=== PATIENT | female | born 1955 | race Caucasian/White ===

== ENCOUNTER → 2019-02-15 | Outpatient (CLI) | payer OTHER ==
[~2019-02-15] MED LIST: ALBU90OI INH; AMOX500 PO; BENZ100A PO; DIPH50; HYDACE5 PO; NAPR220; PENVK500 PO; PRED20 PO; RXPENVK250 PO
[2019-02-20 14:07] LABS: HPV 16 Negative (Negative); HPV 18 Negative (Negative); HPV OTHER HR TYPES Positive (Negative)
== END | disposition home or self-care (01) ==
LOC: LAB SHORT 17:35 → LAB 17:35
PROVIDERS: Family Medicine
DX: Z12.4 Encounter for screening for malignant neoplasm of cervix (principal)
CPT/HCPCS: 87624; G0145

== ENCOUNTER 2020-04-24 08:57 | Day surgery (SDC) | payer OTHER ==
[~2020-04-24 08:57] MED LIST changes: +ATOR40TA; +Aspir 8181 MG; +GABA300; +Prinivil10 MG; +SERT100
--- NOTE | 2020-04-24 11:27 | NUR ---
PT BROUGHT BACK TO RECOVERY ROOM ON GURNEY, TR BAND ON RIGHT WRIST WITH AIR IN, RIGHT VENOUS BRACHIAL SITE SOFT NON TENDER WITH NO BLEEDING OOZING, OR PAIN. PT C/O NAUSEA, MEDICATED WITH ZOFRAN [address] FIELDS. WILL CONTINUE TO MONITOR. CALL LIGHT IN REACH, VSS.
[2020-04-24] MEDS ORDERED: Vitamin D2000 UNIT PO (11:40)
[2020-04-24] MEDS ORDERED: ALBU8HFA2 INH (11:40)
[2020-04-24] MEDS ORDERED: FISH OIL 1,2001 EAC7 (11:40)
[2020-04-24] MEDS ORDERED: TRAZ50 PO (11:41)
[2020-04-24] MEDS ORDERED: MELA3 (11:41)
--- NOTE | 2020-04-24 13:14 | NUR ---
10 CC OF AIR REMOVED OUT OF NOW DEFLATED RIGHT TR BAND OVER 10 MIN. RIGHT RADIAL SITE SOFT NON-TENDER WITH NO HEMATOMA AND NO PULSATILE BLEEDING. RIGHT AC VENOUS SITE SOFT NON-TENDER WITH NO HEMATOMA, NO BLEEDING AND INTACT DRESSING. DISCHARGE INSTRUCTIONS REVIEWED AND ALL QUESTIONS ANSWERED.
--- NOTE | 2020-04-24 13:25 | NUR ---
NO CHANGES TO EITHER DEFLATED RIGHT TR BAND SITE OR RIGHT AC VENOUS SITE.
--- NOTE | 2020-04-24 13:36 | NUR ---
NO CHANGES TO RIGHT DEFLATED TR BAND SITE OR RIGHT AC VENOUS SITE.
--- NOTE | 2020-04-24 14:11 | NUR ---
DEFLATED RIGHT TR BAND REMOVED AND POLYMEM PLACED OVER RIGHT RADIAL SITE WITH WRIST BOARD IN PLACE. NO CHANGES TO EITHER RIGHT RADIAL SITE OR RIGHT AC VENOUS SITE. 22 G IV REMOVED FROM LEFT AC WITH INTACT CANNULA. PT ESCORTED OUT VIA WHEELCHAIR ESCORT.
== END 2020-04-24 14:20 | disposition home or self-care (01) ==
LOC: MHTC 08:57
PROC: B206YZZ Plain Radiography of Right and Left Heart using Other Contrast (ICD-10-PCS; principal; 2020-04-24)
PROC: 4A023N8 Measurement of Cardiac Sampling and Pressure, Bilateral, Percutaneous Approach (ICD-10-PCS; principal; 2020-04-24)
PROC: B201YZZ Plain Radiography of Multiple Coronary Arteries using Other Contrast (ICD-10-PCS; principal; 2020-04-24)
DX: I35.0 Nonrheumatic aortic (valve) stenosis (principal); R07.89 Other chest pain; I25.10 Atherosclerotic heart disease of native coronary artery without angina pectoris; E78.5 Hyperlipidemia, unspecified; M79.7 Fibromyalgia; I11.0 Hypertensive heart disease with heart failure; I50.9 Heart failure, unspecified; Z88.5 Allergy status to narcotic agent; Z87.891 Personal history of nicotine dependence; Z79.899 Other long term (current) drug therapy; Z79.82 Long term (current) use of aspirin
CPT/HCPCS: 76937; 85347; 93460; 99152; 99153; C1769; C1887; C1894; J1644; J2250; J2405; J3010; J7040; J7050; Q9967

== ENCOUNTER 2021-10-22 11:44 | Day surgery (SDC) | payer OTHER ==
[~2021-10-22 11:44] MED LIST changes: +ALBU8HFA2 INH; +FISH OIL 1,2001 EAC7; +MELA3; +TRAZ50 PO; +Vitamin D2000 UNIT PO
== END 2021-10-22 12:15 | disposition home or self-care (01) ==
LOC: ORSCSDS 11:44
DX: Z12.11 Encounter for screening for malignant neoplasm of colon (principal); Z53.9 Procedure and treatment not carried out, unspecified reason
CPT/HCPCS: J7120

== ENCOUNTER → 2021-11-05 | Outpatient (CLI) | payer OTHER | END | disposition home or self-care (01) | LOC: LAB SHORT 08:04 → PLD 08:04 | DX: N72 Inflammatory disease of cervix uteri (principal); N88.8 Other specified noninflammatory disorders of cervix uteri | CPT/HCPCS: 88305 ==

== ENCOUNTER 2022-11-27 12:38 | Inpatient (IN) | payer OTHER ==
[~2022-11-27] VITALS: Ht 152.4 cm; Wt 58.0 kg
[~2022-11-27 12:38] MED LIST changes: +ACET325 PO; -ATOR40TA; +ATOR40TA PO; -Aspir 8181 MG; +Aspir 8181 MG PO; -FISH OIL 1,2001 EAC7; +FISH OIL 1,2001 EAC7 PO; -MELA3; +MELA3 PO; -Prinivil10 MG; +Prinivil10 MG PO; -SERT100; +SERT100 PO
[2022-11-27 13:45] LABS: BASOPHILS ABSOLUTE AUTO 0.03 K/mm3 (0.00-0.23); BASOPHILS PERCENT AUTO 0 % (0-2); EOSINOPHILS PERCENT AUTO 1 % (0-6); Hematocrit 41.5 % (33.0-51.0); Hemoglobin 13.5 g/dL (11.5-16.0); IMMATURE GRAN ABSOLUTE AUTO 0.03 K/mm3 (0.00-0.10); IMMATURE GRAN PERCENT AUTO 0 % (0-1); LYMPHOCYTES ABSOLUTE AUTO 0.83 K/mm3 (0.84-5.20); LYMPHOCYTES PERCENT AUTO 8 % (21-46); MONOCYTES ABSOLUTE AUTO 0.48 K/mm3 (0.16-1.47); MONOCYTES PERCENT AUTO 5 % (4-13); Mean Corpuscular HGB 30.3 pg (26.0-34.0); Mean Corpuscular HGB Conc 32.5 g/dL (31.5-36.5); Mean Corpuscular Volume 93 fL (80-100); Mean Platelet Volume 10.6 fL (9.1-12.4); NEUTROPHILS ABSOLUTE AUTO 8.52 K/mm3 (1.96-9.15); NEUTROPHILS PERCENT AUTO 85 % (41-73); Platelet Count 185 K/mm3 (150-400); RDW Coefficient Variation 13.6 % (11.7-14.2); Red Blood Cell Count 4.45 M/mm3 (3.80-5.20); White Blood Cell Count 9.99 K/mm3 (4.00-11.30)
[2022-11-27 14:00] LABS: Albumin/Globulin Ratio 0.9 (0.8-1.8); Bilirubin, Total 0.4 mg/dL (0.1-1.0); Bun/Creatinine Ratio 21.3 (12.0-20.0); Calcium, Blood 9.1 mg/dL (8.5-10.1); Creatinine, Blood 0.8 mg/dL (0.40-1.00); Globulin, Blood 4.4 g/dL (2.2-4.0); Potassium, Blood 4.1 mmol/L (3.5-5.5); Total Protein, Blood 8.4 g/dL (6.4-8.2)
[2022-11-27] MEDS ORDERED: ELIQUIS2.5 MG (16:05)
[2022-11-27 19:49] VITALS: BP 155/71
[2022-11-27] MEDS ORDERED: BUPR150ER PO (19:52)
[2022-11-27 22:52] LABS: International Normalized Ratio 1.06; Prothrombin Time Results 11.1 Sec (9.7-11.5)
[2022-11-28] VITALS (7 sets, daily range): BP systolic 83–131; BP diastolic 54–60
[2022-11-28 05:11] LABS: BASOPHILS ABSOLUTE AUTO 0.02 K/mm3 (0.00-0.23); BASOPHILS PERCENT AUTO 0 % (0-2); EOSINOPHILS ABSOLUTE AUTO 0.07 K/mm3 (0.00-0.68); EOSINOPHILS PERCENT AUTO 1 % (0-6); Hematocrit 35.2 % (33.0-51.0); Hemoglobin 11.4 g/dL (11.5-16.0); IMMATURE GRAN ABSOLUTE AUTO 0.05 K/mm3 (0.00-0.10); IMMATURE GRAN PERCENT AUTO 1 % (0-1); LYMPHOCYTES ABSOLUTE AUTO 0.88 K/mm3 (0.84-5.20); LYMPHOCYTES PERCENT AUTO 9 % (21-46); MONOCYTES PERCENT AUTO 7 % (4-13); Mean Corpuscular HGB 29.8 pg (26.0-34.0); Mean Corpuscular HGB Conc 32.4 g/dL (31.5-36.5); Mean Corpuscular Volume 92 fL (80-100); Mean Platelet Volume 10.5 fL (9.1-12.4); NEUTROPHILS PERCENT AUTO 83 % (41-73); Platelet Count 155 K/mm3 (150-400); RDW Coefficient Variation 13.7 % (11.7-14.2); RDW Standard Deviation 46.5 fL (35.1-46.3); Red Blood Cell Count 3.82 M/mm3 (3.80-5.20); White Blood Cell Count 10.12 K/mm3 (4.00-11.30)
[2022-11-28 05:27] LABS: Bun/Creatinine Ratio 17.2 (12.0-20.0); Calcium, Blood 8.9 mg/dL (8.5-10.1); Creatinine, Blood 0.75 mg/dL (0.40-1.00); Potassium, Blood 3.7 mmol/L (3.5-5.5)
--- NOTE | 2022-11-28 06:32 | NUR ---
Summary: Patient did well overnight. Called provider for tele order placed patient on tele. SR. Patient having chest pain overnight medicated per EMAR. Patient did have a drop in hgb about 2 points this am. No other acute events overnight. Patietn able to ambulate up to restroom. Aox4. Call light in reach.
--- NOTE | 2022-11-28 16:59 | NUR ---
SHIFT SUMMARY PT WOKE FOR SHIFT REPORT THIS AM. ADMITTED FOR PERICARDITIS. PER REPORT, BP DROPPING AT END OF NOC SHIFT, FROM PREVIOUS VS; SEE CHART. DR COLEMAN NOTIFIED DURING SHIFT REPORT. NEW ORDERS PLACED. PT CONTINUED TO BE MONITORED. CARDIOLOGY CONSULT PLACED AND DR ALLISON HERE TO SEE PT AND DISCUSS SITUATION. CHRONOMETER TESTER TO WHILE DR ALLISON STILL HERE. STAT ORDER OF TORADOL OBTAINED TO ASSIST PT WITH L SHOULDER PAIN, IN ORDER TO COMPLETE EXAM. MEDICATION GIVEN PER EMAR, THRU OUT THE DAY FOR C/O "L SHOULDER PAIN, RADIATING TO SHOULDER BLAEDES". PT UP INDEPENDENTLY IN RM TO BTHRM. PT WANTING TO TAKE A SHOWER THIS EVENING. ABLE TO TALK ON PHONE TO FAMILY. DENIED FURTHER NEEDS AT THIS TIME. CALL LT IN REACH.
[2022-11-29 02:48] VITALS: BP 117/59
--- NOTE | 2022-11-29 04:43 | NUR ---
SHIFT SUMMARY PT A&OX4, PLEASANT AND COOPERATIVE WITH CARE. NO ACUTE CHANGES. VSS. RESTED MAJORITY OF SHIFT. PT REQUIRED NO PAIN COVERAGE THIS SHIFT. NO COMPLAINTS OF SOB/CP/PRESSURE. INDEPENDENT IN ROOM/BATHROOM. TOLERATING PO INTAKE. CALLS APPROPRIATELY, CALL LIGHT WITHIN REACH.
[2022-11-29 05:25] LABS: Albumin, Blood 3.1 g/dL (3.4-5.0); Anion Gap 7 mmol/L (6-16); Blood Urea Nitrogen 14 mg/dL (8-24); Bun/Creatinine Ratio 17.2 (12.0-20.0); CO2, Blood 26 mmol/L (21-32); Calcium, Blood 9.1 mg/dL (8.5-10.1); Chloride, Blood 108 mmol/L (98-108); Creatinine, Blood 0.82 mg/dL (0.40-1.00); Glomerular Filtration Rate 80 (60-); Glucose, Blood 164 mg/dL (70-99); Phosphorus, Blood 3.5 mg/dL (2.5-4.9); Potassium, Blood 3.8 mmol/L (3.5-5.5); Sodium, Blood 141 mmol/L (136-145)
[2022-11-29 07:36] VITALS: BP 120/63
[2022-11-29] MEDS ORDERED: COLCHICINE0.6 MG PO (11:55)
[2022-11-29] MEDS ORDERED: INDO50 PO (11:56)
[2022-11-29] MEDS ORDERED: PANT40 PO (11:57)
[2022-11-29] MEDS ORDERED: ONDA4ODT MM (11:58)
--- NOTE | 2022-11-29 13:17 | NUR ---
PATIENT DISCAHRGED TO HOME ACCOMPANIED BY DAUGHTER. IV SALINE LOCK AND TELEMETRY REMOVED WITHOUT INCIDENT. VERBALIZED UNDERSTANDING OF D/C INSTRUCTIONS. WILL BIKE MECHANIC MEDS FROM [facility] IS CLOSED TODAY. OFF UNIT VIA W/C AT 1305. NO BELONGINGS LEFT BEHIND IN ROOM.
--- NOTE | 2022-11-29 18:03 | NUR ---
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 RE-FAXED MEDICATIONS TO [facility] AT 1730 TODAY.
== END 2022-11-29 13:00 | disposition home or self-care (01) | DRG 315 ==
LOC: ER 12:38 → MEDS 12:39
PROVIDERS: Internal Medicine; Physician Assistant; ADMIT Student in an Organized Health Care Education/Training Program
DX: I97.89 Other postprocedural complications and disorders of the circulatory system, not elsewhere classified (principal); I24.1 Dressler's syndrome; I31.39 Other pericardial effusion (noninflammatory); I48.0 Paroxysmal atrial fibrillation; I95.9 Hypotension, unspecified; E78.5 Hyperlipidemia, unspecified; F32.A Depression, unspecified; I10 Essential (primary) hypertension; E66.9 Obesity, unspecified; Z98.891 History of uterine scar from previous surgery; Z95.2 Presence of prosthetic heart valve; Z88.5 Allergy status to narcotic agent; Z87.891 Personal history of nicotine dependence; Z79.891 Long term (current) use of opiate analgesic; Z79.82 Long term (current) use of aspirin; Z79.01 Long term (current) use of anticoagulants; Z79.899 Other long term (current) drug therapy
CPT/HCPCS: 36415; 71046; 71275; 80048; 80053; 80069; 83690; 83880; 84484; 85025; 85610; 85730; 86141; 93005; 93010; 93306; 96374-59; 96375-59; 96376; 96376-59; 99285-25; A9270; G0378; J1885; J2405; J3010; Q9967

== ENCOUNTER → 2024-08-23 | Outpatient (CLI) | payer OTHER ==
[~2024-08-23] MED LIST changes: +BUPR150ER PO; +COLCHICINE0.6 MG PO; +ELIQUIS2.5 MG; +HYDR1TAB94 PO; +INDO50 PO; +Indomethacin50 MG PO; +MITIGARE0.6 M1 PO; +ONDA4ODT MM; +PANT40 PO
[2024-08-30 18:15] LABS: HPV HIGH RISK BY TMA Not Detected; HPV SOURCE Cervical
== END ==
LOC: LAB SHORT 13:47 → LAB 13:47
PROVIDERS: Student in an Organized Health Care Education/Training Program
DX: R87.810 Cervical high risk human papillomavirus (HPV) DNA test positive (principal)
CPT/HCPCS: 87624; 88142